=== PATIENT | female | born 1980 | race Caucasian/White ===

== ENCOUNTER 2017-12-14 13:30 | Emergency (ER) | payer OTHER ==
[~2017-12-14] VITALS: Ht 165.1 cm; Wt 69.5 kg
[2017-12-14] MEDS ORDERED: METF500T4 PO (14:11)
[2017-12-14] MEDS ORDERED: GEMF600T3 PO (14:11)
[2017-12-14 14:18] LABS: GLUCOSE,POINT OF CARE 169 MG/DL (70-110)
[2017-12-14 16:10] LABS: BASOPHILS # (AUTO) 0.01 K/uL (0.00-0.20); BASOPHILS % (AUTO) 0.2 % (0.0-2.0); EOSINOPHILS # (AUTO) 0.09 K/uL (0.00-0.70); EOSINOPHILS % (AUTO) 1.62 % (1.0-6.0); HEMATOCRIT 43.3 % (36-46); HEMOGLOBIN 14.4 g/dL (12.0-16.0); LYMPHOCYTES % (AUTO) 17.8 % (22.0-44.0); MEAN CORPUSCULAR HEMOGLOBIN 28.9 pg (26.0-34.0); MEAN CORPUSCULAR HGB CONC 33.2 G/dL (31.0-37.0); MEAN CORPUSCULAR VOLUME 87 fL (80-100); MONOCYTES # (AUTO) 0.3 K/uL (0.1-1.0); MONOCYTES % (AUTO) 4.8 % (2.0-9.0); NEUTROPHILS # (AUTO) 4.3 K/uL (1.8-7.7); NEUTROPHILS % (AUTO) 75.6 % (40.0-70.0); PLATELET COUNT (AUTO) 249 K/uL (150-450); RED BLOOD CELL COUNT(AUTO) 4.97 MIL/uL (4.00-5.20); RED CELL DISTRIBUTION WIDTH 13.2 % (11.5-14.5)
[2017-12-14 16:20] LABS: APPEARANCE,URINE CLEAR (CLEAR); BILIRUBIN,URINE NEGATIVE (NEGATIVE); GLUCOSE, URINE (UA) NEGATIVE (NEGATIVE); KETONES,URINE NEGATIVE (NEGATIVE); LEUKOCYTE ESTERASE ,URINE NEGATIVE (NEGATIVE); NITRATE,URINE NEGATIVE (NEGATIVE); OCCULT BLOOD,URINE LARGE (NEGATIVE); PROTEIN,URINE NEGATIVE (NEGATIVE); UROBILINOGEN,URINE 0.2 mg/dL (<=1.0)
[2017-12-14 16:25] LABS: ANION GAP 9 mmol/L (8-16); CALCIUM, TOTAL 9.3 mg/dL (8.8-10.5); CARBON DIOXIDE 27 mmol/L (22-29); CHLORIDE 98 mmol/L (98-107); CREATININE 0.49 mg/dL (0.60-1.30); GLOMERULAR FILTR. RATE CALC > 60 mL/min (>60); GLUCOSE,RANDOM 124 mg/dL (70-110); POTASSIUM 4.2 mmol/L (3.5-5.1); SODIUM SERUM 134 mmol/L (136-145); UREA NITROGEN, BLOOD 12 mg/dL (7-18)
[2017-12-14 16:30] LABS: ALANINE AMINOTRANSFERASE 27 U/L (12-78); ALBUMIN 4.1 g/dL (3.4-5.0); ALKALINE PHOSPHATASE 68 U/L (46-116); ASPARTATE AMINOTRANSFERASE 15 U/L (15-37); BILIRUBIN,TOTAL 0.3 mg/dL (0.1-1.0); LIPASE 136 U/L (73-393); TOTAL PROTEIN, SERUM 8.1 g/dL (6.4-8.2)
[2017-12-14 17:18] LABS: BACTERIA,URINE Many /HPF (None Seen); RBC,URINE 26-50 /HPF (0-2); SQUAMOUS EPITHELIAL CELL,UR Few /LPF (None Seen); WBC,URINE 0-2 /HPF (0-5)
[2017-12-14 19:41] VITALS: BP 146/85
== END 2017-12-14 19:42 | disposition home or self-care (01) ==
LOC: EMS 13:35
DX: K80.20 Calculus of gallbladder without cholecystitis without obstruction (principal); E11.9 Type 2 diabetes mellitus without complications; E78.00 Pure hypercholesterolemia, unspecified; Z88.0 Allergy status to penicillin; Z88.2 Allergy status to sulfonamides
CPT/HCPCS: 76705; 82962; 87086; 99285

== ENCOUNTER 2022-08-05 13:07 | Emergency (ER) | payer OTHER ==
[~2022-08-05] VITALS: Ht 162.6 cm; Wt 70.5 kg
[~2022-08-05 13:07] MED LIST: GEMF-77 PO; METF-1211 PO
[2022-08-05 13:24] VITALS: BP 185/102
[2022-08-05] MEDS ORDERED: METF-81 PO (13:33)
[2022-08-05] MEDS ORDERED: GLYB5TAB8 PO (13:33)
[2022-08-05] MEDS ORDERED: ATOR20TA65 PO (13:33)
[2022-08-05] MEDS ORDERED: SEMA14TA2 PO (13:33)
[2022-08-05] MEDS ORDERED: LISI5TAB21 PO (13:33)
== END 2022-08-05 17:00 | disposition left against medical advice (07) ==
LOC: EMS 13:11
DX: Z53.21 Procedure and treatment not carried out due to patient leaving prior to being seen by health care provider (principal)
CPT/HCPCS: 93005